=== PATIENT | female | born 1970 | race African-American/Black ===

== ENCOUNTER 2019-08-01 10:37 | Day surgery (SDC) | payer BC, OTHER ==
[~2019-08-01] VITALS: Ht 160 cm; Wt 117.5 kg
[2019-08-01 11:15] LABS: HEMATOCRIT 37.8 % (36.0-48.0); HEMOGLOBIN 12.7 g/dL (12-16); MCH 30.9 pg (26.0-34.0); MCHC 33.6 g/dL (31.0-37.0); MEAN PLATELET VOLUME 8.2 fL (7.4-10.4); RBC 4.11 10x6/uL (4.00-5.40); RDW 13.9 % (11.5-14.5); WBC 4.1 10x3/uL (4.8-10.8)
[2019-08-01] MEDS ORDERED: CYMBALTA30 MG PO (12:14)
[2019-08-01] MEDS ORDERED: PREDNISONE5 MG PO (12:14)
[2019-08-01] MEDS ORDERED: METOPROLOL TART50 MG PO (12:14)
[2019-08-01] MEDS ORDERED: ISOSORBIDE MONO30 M1 PO (12:15)
[2019-08-01] MEDS ORDERED: NORVASC5 MG PO (12:15)
[2019-08-01] MEDS ORDERED: LIPITOR40 MG PO (12:16)
[2019-08-01] MEDS ORDERED: TRAZODONE HCL150 MG PO (12:16)
[2019-08-01] MEDS ORDERED: ERENUMAB (12:17)
[2019-08-01] MEDS ORDERED: LINZESS290 MCG PO (12:17)
[2019-08-01] MEDS ORDERED: OMEPRAZOLE20 M1 PO (12:18)
[2019-08-01] MEDS ORDERED: NASONEX NASAL S17 GM NS (12:18)
[2019-08-01] MEDS ORDERED: BENADRYL25 MG PO (12:19)
[2019-08-01] MEDS ORDERED: XALATAN 0.0052.5 ML EACH EYE (12:19)
[2019-08-01] MEDS ORDERED: ALBUTEROL SULF8.5 GM INH (12:20)
[2019-08-01] MEDS ORDERED: NITROSTAT0.4 MG SL (12:20)
[2019-08-01 12:28] VITALS: BP 140/70; Ht 160 cm; Wt 117.5 kg
--- NOTE | 2019-08-01 16:17 | NUR ---
1600-RECD TO ROOM 2516 FROM PACU. ALERT. IV PATENT. RESP WITH EASE. BILAT FOOT DRESSINGS DRY AND INTACT. POST OP SHOE ON BILAT. COMPLAINS OF PAIN RATED 7-8 ON THE LEFT. CALL IN FOR PAIN MED.
--- NOTE | 2019-08-01 16:52 | NUR ---
1630-DILAUDID 1MG IV GIVEN FOR L FOOT PAIN RATED 8. 1640-STATES PAIN DOWN TO 3, AMBULATES WITH ASSIST TO BATHROOM. 1650-PAIN BACK TO 8, RETURNED TO BED, FEET ELEVATED AND ICE APPLIED. 1653-DILAUDID 1MG GIVEN IV.
--- NOTE | 2019-08-01 17:24 | NUR ---
1700-TRAMADOL 50MG GIVEN FOR COMPLAINT OF PAIN RATED 3-4. 1710-IV D/C AND DRESSING. 1725-DISCHARGE INSTRUCTIONS REVIEWED.
--- NOTE | 2019-08-05 09:04 | OP ---
PATIENT NAME: LUCILA LAN MEDICAL RECORD: [id number] :66 LOCATION:D.OPS ADMISSION DATE: SURGEON: JAMES ARTIS DATE OF OPERATION: 08/01/2019 SURGEON: James Artis DPM PREOPERATIVE DIAGNOSES: 1. Ganglionic cyst, left foot. 2. Ganglion cyst, right foot. POSTOPERATIVE DIAGNOSES: 1. Ganglionic cyst, left foot. 2. Ganglion cyst, right foot. PROCEDURES: 1. Excision of ganglionic cyst, left foot. 2. Excision of ganglion cyst, right foot. ANESTHESIA: Local with monitored anesthesia care. HEMOSTASIS: Pneumatic ankle tourniquet inflated to 250 mmHg. ESTIMATED BLOOD LOSS: Minimal. MATERIALS: 3-0 Vicryl, 4-0 nylon. INJECTABLES: A 20 cc of 0.5% bupivacaine plain. INDICATIONS: The patient has history of masses on the dorsum of both feet. These have provided pain in shoe gear. She is here today for surgical correction of this chronically painful condition. We discussed the risks and benefits of the procedure. Complications were reviewed. All questions were answered. She was appropriately consented for the above-mentioned procedure. DESCRIPTION OF PROCEDURE: The patient was brought in the operating room and placed on the operating table in supine position. A timeout was called with Dr. Artis, who identified the patient, surgical site, and the surgery to be performed. Once appropriate anesthesia was obtained, the foot was prepped and draped in the usual aseptic manner. Attention was directed to the dorsal aspect of the right foot where a mass was identified over the dorsum of the foot. A 4-cm linear incision was made directly over the mass. The incision was carried deep to soft tissue with care being taken to retract all vital neurovascular structures. All bleeders were cauterized along the way. The mass was identified and noted to be quite consistent with a ganglion cyst. The mass was then dissected free of all soft tissue attachments and passed from the field. The stalk of the lesion was identified and cauterized. The surgical site was then investigated for any remaining pathological tissue and none was noted. The surgical site was then irrigated with copious amounts of normal sterile saline via bulb syringe. The subQ and deep structures were reapproximated and coapted using 3-0 Vicryl. The subQ was reapproximated and coapted using 4-0 Vicryl. The skin was reapproximated and coapted using 4-0 nylon. A dressing consisting of Xeroform, OPERATIVE REPORT [id number] LUCILA LANELLE 4 x 4's, Kerlix, and Coban was applied to the foot. Pneumatic ankle tourniquet was deflated and cap refill time was immediate to all digits of the involved foot. Procedure number 2; the exact same procedure that was performed on procedure number 1 was performed on the contralateral foot without exception. The patient tolerated the procedures and the anesthesia well. She left the operating room with vital signs stable and capillary refill time intact. The patient was discharged home with instructions to ice and elevate the feet. She was dispensed postop shoes to further help offload the area. She has my cell phone number for any after-hours difficulties. There were no complications with this procedure. She was provided with a prescription for tramadol and ibuprofen and we will follow up with her next week. TRANSINT:[id number] Voice Confirmation ID: [id number] DOCUMENT ID: [id number] JAMES ARTIS at 0904 CC: [id number] DICTATION DATE: 08/01/19 1556 PATIENT SERVICE REPRESENTATIVE: 08/01/19 1659 [facility] 08/01/19 [id number] [place] [address]
== END 2019-08-01 17:30 | disposition home or self-care (01) ==
LOC: D.OPS 10:37 → D.PAN 13:15 → D.OPS 14:15
PROVIDERS: Anesthesiology; ATTEND Podiatrist
DX: M67.472 Ganglion, left ankle and foot (principal); M67.471 Ganglion, right ankle and foot